=== PATIENT | female | born 1960 | race Caucasian/White ===

== ENCOUNTER 2016-11-20 12:31 | Emergency (ER) | payer MEDICARE, MEDICAID ==
[~2016-11-20] VITALS: Ht 157.5 cm; Wt 63.5 kg
--- NOTE | 2016-11-20 13:52 | [facility]gent Treatment Center Report ---
History of Present Issue Date/Time Seen by Provider 11/20/16 1343 Visit Reason Pt arrived:Walked Presenting Problem:LEFT WRIST PAIN AFTER FEELING A POP THE OTHER DAY WHEN SHE PICKED UP A KLEIN Location if Accident: Onset of symptoms date/time:11/17/16/ or onset unknown for:MEDICAL HX UNKNOWN Have you (or family members/close friends) recently traveled outside the [place]? N If Yes, where/when: Have you had exposure to infectious disease within the past month? TB? Other? Specify: States that she was doing dishes on Wed and picked up a cast iron skillet and she felt a pop in her left wrist States that she continued to do the dishes and noticed that as the day went on Wrist continued to hurt. State that the next day it was swollen and has continued to swell on and off and having pain denies falling ALLERGIES Coded Allergies: PEANUTS (FOOD) (Intermediate, ITCHING OF PALMS OF HANDS AND BOTTOM OF FEET 11/30) hydromorphone (Mild, ITCHING OF FACE/NOSE 12/10/15) morphine (Mild, SHAKING 12/10/15) penicillin G (Mild, 03/02/15) Canned Fish (FISH,CANNED) (Mild, NAUSEA/VOMITING 11/30/14) PT REPORTS "IF I EAT FISH TODAY I'LL SMELL LIKE FISH FOR 4 DAYS. MY BODY DOESN'T ABSORB THE FISH OIL, IT PUTS IT OUT THROUGH MY PORES". Home Medications Active Scripts Polyethylene Glycol 3350 (Miralax) 17 GM PO DAILY 30 Days Prov: 12/12/15 MECLIZINE HCL (ANTIVERT 25MG (generic)) 25 MG PO BID #60 TAB Prov: 10/15/16 Reported Medications INSUL REG 30%ISOPHAN 70% HUMAN (Humulin 70-30 Vial) 20 UNITS SC QHS INSUL REG 30%ISOPHAN 70% HUMAN (Humulin 70-30 Vial) 40-45 UNITS SC QAM LISINOPRIL/HYDROCHLOROTHIAZIDE (Lisinopril-Hctz 20-25 MG Tab) 0.25 TAB PO DAILY Furosemide (Furosemide) 20 MG PO DAILY Metolazone (Metolazone 2.5MG) 2.5 MG PO DAILY #30 TAB Loratadine (Loratadine 10MG Tablet) 10 MG PO QHS Lovastatin 20 MG PO QHS Ranitidine Hydrochloride (Ranitidine) 300 MG PO QHS Omeprazole (Omeprazole 40MG) 40 MG PO DAILY METFORMIN HCL (Metformin Hydrochloride) 1,000 MG PO BID #60 History Medical History General CAD? No Angina: Yes ID: No Hypertension? Yes Hyperlipidemia? Yes CHF? No DVT? No PE? No COPD? No Asthma? Yes Anemia? No GERD? No Gastric ulcers? No GI Bleed? No Hernia? No Thyroid Problems? No Hypothyroidism? No CVA? No Seizures? No Diabetes? Yes Insulin Dependent: Yes Insulin Pump: No Home FSBS? Yes Renal Insuffiency? No UTI? Yes Stones? No BPH? No GB Disease: Yes Nephritic Syndrome? No Asplenia? No Hepatitis? No Sickle Cell Disease? No Arthritis? No Migraines? No Cataracts? No Glaucoma? No MRSA? No HIV? No TB? No Anxiety? No Depression? No Cancer? No More? No Immunization HX DT/Tetanus Unknown Flu 2015- Flu Season Pneumonia Never Had Surgical Hx Previous Surgery?Y LT HAND HYSTERECTOMY 2002 CHOLECYSTECTOMY Family History Family HX Diabetes Yes CAD Yes Hypertension Yes Hyperlipidemia Yes Cancer No TB No Social History Smoking Hx Smoker: Never Smoker Tobacco: No Packs/day < 1 Pack Alcohol Alcohol: No Review of Systems All Other Systems Reviewed and Negative Comment Pain in left wrist after picking up klein while doing dishes Physical Exam Vital Signs Vital Signs Date Time Temp Pulse Resp B/P Pulse O2 O2 Flow FiO2 Ox Delivery Rate 11/20 1338 97.8 70 18 140/70 98 11/20 1240 97.8 70 18 140/70 98 General Appearance normal appearance, WD/WN, no apparent distress Respiratory Status Yes: trachea midline, chest symmetrical, non tender chest. No: respiratory distress. Cardiovascular normal exam, regular rate/rhythm Extremities swelling, Pain and mild swelling left wrist, no bruising no discoloration good pulses good cap refill Neurologic alert, normal exam, oriented x 3 Medical Decision Making LABS/Meds/Orders Pt receiving controlled substance in ED? No Results/Orders Current Medication Orders Sig/Kerrie Start time Last Medication Dose Route Stop Time Status Admin Ketorolac 60 MG ONCE ONE 11/20 1345 DC Tromethamine IM 11/20 1346 Orders Procedure Date/time Status UTC STABILIZE JOINT/AREA 11/20 1403 Active WRIST-3 VIEWS-LT 11/20 1344 Active XRAY/CT/US XRAY/CT/US XRAY wrist XR interpretation by reviewed by me Xray Results no fracture seen Progress [facility] Progress Notes Comment Patient advised that we would have radiologist read xray and if they saw anything different we would call her back Departure Departure Time of Disposition 1403 Disposition DC Home or Self Care(routine) Clinical Impression Primary Impression: Wrist sprain Qualifiers: Encounter type: initial encounter Laterality: left Qualified Code: S63.502A - Unspecified sprain of left wrist, initial encounter Condition STABLE Referrals Orlando Duran MD (Family): 2 Days-Call Office if pain persists for referral to orthopedics if warrented Patient Instructions How To Perform RICE (Rest, Ice, Compress, Elevate) Additional Instructions *RICE, Rest the extremity, Ice 15-20 minutes 3-4 times daily, Compress- wear the erik wrap as discussed as much as possible to help reduce swelling and pain, Elevate the extremity when at rest *Erik wrap is for support and help control swelling, use it except in the shower. Be sure that is not to tight but not to loose either *Elevate when resting *Ibuprofen 600-800mg every 6-8 hours as needed for pain an inflammation. If need something more can take Tylenol in between doses of Ibuprofen to help Immediately follow up for new or worsening of symptoms, or no noticeable improvement over the next 3-5 days Discharge Counseling Counseled pt/family regarding diagnosis, test results, medications/RX, home care, follow up needs Prescriptions Current Visit Scripts Ibuprofen (Ibuprofen 800MG) 800 MG PO QIDP PRN pain #30 TAB at [id number]
[2016-11-20 14:19] VITALS: BP 140/70
--- NOTE | 2016-11-20 14:50 | RADIOLOGY REPORT PS360 ---
WRIST-3 VIEWS-LT COMPARISON: Left hand 08/18/2009 HISTORY: S pain TECHNIQUE: AP lateral and oblique views FINDINGS: The distal radius and ulna appear intact. The carpal bones are normal and the soft tissues are normal. IMPRESSION: Negative left wrist
--- OUTSIDE RECORDS SUMMARY | 2016-11-27 04:48 | External Medical Summary Rpt | CCD ---
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 Bilirub 2 0.2 0.2-1.0 complet 013 mg/dL ed SerPl-m 02:47 Cnc AST 26-2 5 U/L 15-37 complet SerPl-c 013 ed Cnc 02:47 ALT --2 27 U/L 30-65 complet SerPl-c 013 ed Cnc 02:47 ALP 08-10-2 109 U/L 50-136 complet SerPl-c 013 ed Cnc 02:47 Amylase SerPl-cCnc (08-10-2012 02:47) Amylase 08-10-2 85 U/L 25-115 complet 013 ed SerPl-c 02:47 Cnc LIPASE (08-10-2012 02:47) LIPASE 08-10-2 244 U/L 73-393 complet 013 ed 02:47 CBC with AUTO DIFF (08-10-2012 02:47) WBC # 06-26-2 10.6 4.8-10. complet Bld 013 K/MM3 8 ed Auto 02:47 RBC # 06-26-2 4.92 4.2-5.4 complet Bld 013 M/mm3 ed Auto 02:47 Hgb -26-2 13.9 12.2-16 complet Bld-mCn 013 g/dL .2 ed c 02:47 Hct Fr 08-10-2 42.5 % 37.0-47 complet Bld 013 .0 ed 02:47 MCV RBC -26-2 86.5 fl 82.2-97 complet 013 .8 ed 02:47 MCH RBC -26-2 28.3 pg 27-31.2 complet Qn 013 ed Auto 02:47 MEAN 06-26-2 32.7 31.8-35 complet CORPUSC 013 g/dl .4 ed ULAR 02:47 HGB CONC RDW RBC 06-26-2 14.0 % 11.5-17 complet Auto 013 .5 ed 02:47 Platele 06-26-2 365 142-424 complet t Bld 013 K/mm3 ed Ql 02:47 Manual MEAN 06-26-2 7.3 fl 7.4-10. complet PLATELE 013 4 ed T 02:47 VOLUME Granulo 06-26-2 68.7 % 37.0-80 complet cytes 013 .0 ed Fr Bld 02:47 Auto LYMPH % 06-26-2 25.4 % 10-50.0 complet 013 ed 02:47 Monocyt 06-26-2 3.9 % 1.7-9.3 complet es Fr 013 ed Bld 02:47 Auto Eosinop 06-26-2 1.7 % 0.1-12. complet hil Fr 013 0 ed Bld 02:47 Auto Basophi 06-26-2 0.3 % 0.1-2.0 complet ls Fr 013 ed Bld 02:47 Auto Granulo 06-26-2 7.3 1.8-7.8 complet cytes # 013 K/mm3 ed Bld 02:47 Auto Lymphoc 06-26-2 2.7 0.7-4.5 complet ytes Fr 013 K/mm3 ed Bld 02:47 Auto Monocyt 06-26-2 0.4 0.1-1.0 complet es # 013 K/mm3 ed Bld 02:47 Auto Eosinop 06-26-2 0.2 0.0-0.4 complet hil # 013 K/mm3 ed Bld 02:47 Auto Basophi 06-26-2 0.0 0-0.2 complet ls # 013 K/MM3 ed Bld 02:47 Auto URINALYSIS/COMPLETE (08-10-2012 02:24) URINE 06-26-2 YELLOW YELLOW complet COLOR 013 ed 02:24 URINE 06-26-2 CLEAR CLEAR complet APPEARA 013 ed NCE 02:24 URINE 06-26-2 NEGATIV NEG complet GLUCOSE 013 E ed - 02:24 DIPSTIC K URINE 06-26-2 NEGATIV NEG complet BILIRUB 013 E ed IN - 02:24 DIPSTIC K URINE 06-26-2 NEGATIV NEG complet KETONE 013 E mg/dL ed 02:24 URINE 06-26-2 Greater 1.005-1 complet SPECIFI 013 than .030 ed C 02:24 or GRAVITY equal to 1.030 URINE 06-26-2 NEGATIV NEG complet BLOOD 013 E ed 02:24 URINE 06-26-2 5.5 UNK 5.0-8.5 complet PH 013 ed 02:24 URINE 06-26-2 NEGATIV NEG complet PROTEIN 013 E mg/dL ed - 02:24 DIPSTIC K URINE 06-26-2 0.2 NEG complet UROBILI 013 E.U./dL ed NOGEN - 02:24 DIPSTIC K URINE 06-26-2 NEGATIV NEG complet NITRATE 013 E ed - 02:24 DIPSTIC K URINE NEGATIV NEG complet LEUK 013 E ed ESTERAS 02:24 E URINE 08-10-2 OCC O complet WBC 013 wbc/hpf ed 02:24 URINE 08-10-2 10-20 0-5 complet SQUAMOU 013 #/hpf ed S CELLS 02:24 URINE 08-10-2 OCC O complet BACTERI 013 ed A 02:24 URINE 1+ OCC complet MUCUS 013 ed 02:24 Procedures Procedure DOS Code Location Performer Comment COMPREHEN 51615 COMBINED COMBINED SIVE 7 PHYSICIAN PHYSICIAN METABOLIC S LAB S LAB PANEL LIPID 53707 COMBINED COMBINED PANEL 7 PHYSIC[place] [address] COMBINED COMBINED THYROID 7 PHYSICIAN PHYSICIAN STIMULATI S LAB S LAB NG HORMONE TSH HEMOGLOBI 04770 COMBINED COMBINED N 7 PHYSICIAN PHYSICIAN GLYCOSYLA S LAB S LAB VICTORINA A1C BLOOD 66673 COMBINED COMBINED COUNT 7 PHYSICIAN PHYSICIAN COMPLETE S LAB S LAB AUTO&AUTO DIFRNTL WBC ALLERGEN 41123 [facility] SPECIFIC 7 MEAGAN MEAGAN IGE HOLDINGS HOLDINGS ROLAND/SEMI ROLAND EA ALLERGEN INTRAVITR 60569 [facility] SEN EAL NJX 7 RETINA PHARMACOL CONSULTAN OGIC AGT TS SPX COMPUTERI 62188 [facility] SEN ZED 7 RETINA OPHTHALMI CONSULTAN C IMAGING TS RETINA UNCLASSIF J3590 [facility] SEN IED 7 RETINA BIOLOGICS CONSULTAN TS RADEX 70406 [place] J[place] FOOT 7 MEDICAL COMPLETE IMAGING MINIMUM 3 [place] [address] L[facility] J[facility] GAMMAGLOB 7 [facility] ULIN IGE INC INC ALLERGEN 24688 [facility] SPECIFIC 7 [facility] IGE INC INC ROLAND/SEMI ROLAND EA ALLERGEN COLLECTIO 19666 L[facility] JU[facility] N VENOUS 7 [facility] BLOOD INC INC VENIPUNCT URE COLLECTIO 20430 [facility] N VENOUS 7 [facility] BLOOD INC INC VENIPUNCT URE CREATININ 21579 [facility] JU[facility] E BLOOD 7 [facility] INC INC LOCM Q9967 L[facility] JUAREZ [phone] 7 [facility] MG/ML INC [place] [address] [place] ABDOMEN & 7 MEDICAL PELVIS IMAGING W/CONTRAS ASS T MATERIAL CARCINOEM 20408 L[facility] JU[facility] BRYONIC 7 [facility] [address] LARRY JUAREZ UREA 7 [facility] NITROGEN INC INC QUANTITAT [place] BLD GLU A4253 [facility] TEST/REAG 7 STATES STATES T [facility] BLD SUPPLY SUPPLY GLU MON-50 NORMAL A4256 [facility] LOW AND 7 [facility] STATES HIGH MEDICAL MEDICAL CALIBRATO SUPPLY SUPPLY R SOLUTION/ CHIPS LANCETS A4259 UNITED UNITED PER BOX 7 STATES STATES OF [facility] MEDICAL MEDICAL SUPPLY SUPPLY NITRIC 61016 ALLERGY KNOTT OXIDE 7 PART[employer]ERS OF [employer] GAS CO DETERMINA TION SPMTRY 91757 ALLERGY KNOTT W/VC 7 PARTNERS EXPIRATOR OF DUARTE Y ROXANE CO W/WO MXML VOL VNTJ DSTRJ 03496 [facility] SEN LOCLZD 7 RETINA LESION CONSULTAN RETINA TS 1/ SESS PC LIPID 81395 [facility] J[facility]Z PANEL 7 [facility] INC INC COLLECTIO 15466 LARRY LARRY N VENOUS 7 [facility] BLOOD INC INC VENIPUNCT URE COMPREHEN 53560 L[facility] JU[facility]Z SIVE 7 [facility] METABOLIC INC INC PANEL SCREENING G0202 [place] JIMMY 7 MEDICAL MAMMOGRAP IMAGING HY KENY ASS INCL CAD WHEN PERFORMD HEMOGLOBI 17796 L[facility] JUAREZ N 7 [facility] GLYCOSYLA INC INC VICTORINA A1C COMPUTERI 53729 [facility] SEN ZED 7 RETINA OPHTHALMI CONSULTAN C IMAGING TS RETINA UNCLASSIF J3590 [facility] SEN IED 7 RETINA BIOLOGICS CONSULTAN TS INTRAVITR 17021 [facility] SEN EAL NJX 7 RETINA PHARMACOL CONSULTAN OGIC AGT TS SPX LANCETS A4259 [place] PER BOX 7 STATES STATES OF 100 MEDICAL MEDICAL SUPPLY SUPPLY NORMAL A4256 [facility] LOW AND 7 STATES STATES HIGH MEDICAL MEDICAL CALIBRATO SUPPLY SUPPLY R SOLUTION/ CHIPS BLD GLU A4253 [facility] TEST/REAG 7 [facility] STATES T [facility] BLD SUPPLY SUPPLY GLU MON-50 REPL EMANUEL A4233 [facility] ALKALINE 7 [facility] NOT J MEDICAL MEDICAL CELL EDIN SUPPLY SUPPLY BG MON OWND PT SPRING-PO A4258 [facility] WERED [address] [facility] STATES DEVICE MEDICAL MEDICAL FOR SUPPLY SUPPLY LANCET EACH INTRAVITR 24648 [facility] SEN EAL NJX 7 RETINA PHARMACOL CONSULTAN OGIC AGT TS SPX UNCLASSIF J3590 [facility] SEN IED 7 RETINA BIOLOGICS CONSULTAN TS COMPUTERI 85457 [facility] SEN ZED 7 RETINA OPHTHALMI CONSULTAN C IMAGING TS RETINA COLLECTIO 52975 LARRY JUAREZ N VENOUS 7 [facility] BLOOD INC INC VENIPUNCT URE BASIC 18680 LARRY JUAREZ METABOLIC 7 [facility] [place] [address] CHIPPS SETTEMBRE SURG 7 ZOYA & PATHOLOGY DUBILIER GROSS&NINO ROSCOPIC EXAM MEDICAL 56266 LARRY JUAREZ NUTRITION 7 [facility] INC INC ASSMT&IVN TJ INDIV EACH 15 NC INTRAVITR 02240 [facility] SEN EAL NJX 7 RETINA PHARMACOL CONSULTAN OGIC AGT TS SPX COMPUTERI 22851 [facility] SEN ZED 7 RETINA OPHTHALMI CONSULTAN C IMAGING TS RETINA UNCLASSIF J3590 [facility] SEN IED 7 RETINA BIOLOGICS CONSULTAN TS BLOOD 28800 L[facility]Y JUAREZ COUNT 7 [facility] COMPLETE INC INC AUTO&AUTO DIFRNTL WBC C-REACTIV 82204 LARRY JUAREZ E PROTEIN 7 [facility] INC INC COLLECTIO 32156 LARRY JUAREZ N VENOUS 7 [facility] BLOOD INC INC VENIPUNCT URE COMPREHEN 58727 L[facility]Y JUAREZ SIVE 7 [facility] [address] LARRY JUAREZ FERRITIN 7 [facility] INC INC SEDIMENTA 86085 LARRY JUAREZ TION RATE 7 [facility] RBC INC INC NON-AUTOM ATED BLD GLU A4253 UNITED UNITED TEST/REAG 7 STATES STATES [facility] BLD SUPPLY SUPPLY GLU MON-50 NORMAL A4256 [facility] AND 7 [facility] HIGH MEDICAL MEDICAL CALIBRATO SUPPLY SUPPLY R SOLUTION/ CHIPS LANCETS A4259 UNITED UNITED PER BOX [address] [facility] STATES OF [facility] MEDICAL MEDICAL SUPPLY SUPPLY INTRAVITR 80977 [facility] SEN CHAGO EAL NJX 6 RETINA PHARMACOL CONSULTAN OGIC AGT TS SPX COMPUTERI 03046 [facility] SEN CHAGO ZED 6 RETINA OPHTHALMI CONSULTAN C IMAGING TS RETINA UNCLASSIF J3590 [facility] SEN CHAGO IED 6 RETINA BIOLOGICS CONSULTAN TS SBSQ 71088 [facility] 6 PHYSICIAN WILY CARE/DAY S [place] [address] [place] [address] [place] ALL ABDOMEN & 6 MEDICAL PELVIS IMAGING W/O ASS CONTRAST MATERIAL INITIAL 89593 [facility] 6 PHYSICIAN WILY CARE/DAY S GROUP 30 MINUTES LANCETS A4259 [place] PER BOX 6 STATES STATES OF [facility] MEDICAL MEDICAL SUPPLY SUPPLY NORMAL A4256 [facility] AND 6 [facility] HIGH MEDICAL MEDICAL CALIBRATO SUPPLY SUPPLY R SOLUTION/ [place]IPS BLD GLU A4253 [place] TEST/REAG 6 [facility] T [facility] BLD SUPPLY SUPPLY GLU WED-50 FOR DIAB A5512 [place] ONLY MX 6 MEDICAL MEDICAL DNSITY SUPPLY SUPPLY INSRT DIR [employer] FORMD PRFAB EA DIAB ONLY A5500 [place] FIT CSTM 6 MEDICAL MEDICAL PREP&SPL SUPPLY SUPPLY [employer] DNSITY INSRT DSTRJ 79345 [facility] SEN CHAGO LOCLZD 6 RETINA LESION CONSULTAN RETINA TS 1/> SESS PC LIPID 46102 COMBINED COMBINED PANEL 6 PHYSICIAN PHYSICIAN S LA S LA COMPREHEN 86380 COMBINED COMBINED SIVE 6 PHYSICIAN PHYSICIAN METABOLIC S LA S LA PANEL HEMOGLOBI 82173 COMBINED COMBINED N 6 PHYSICIAN PHYSICIAN GLYCOSYLA S LA S LA VICTORINA A1C COMPUTERI 86871 [facility] SEN CHAGO ZED 6 RETINA OPHTHALMI CONSULTAN C IMAGING TS RETINA UNCLASSIF J3590 [facility] SEN CHAGO IED 6 RETINA BIOLOGICS CONSULTAN TS INTRAVITR 66620 [facility] SEN CHAGO EAL NJX 6 RETINA PHARMACOL CONSULTAN OGIC AGT TS SPX COMPREHEN 58363 COMBINED COMBINED SIVE 6 PHYSICIAN PHYSICIAN METABOLIC S LA S LA PANEL LIPID 02866 COMBINED COMBINED PANEL 6 PHYSICIAN PHYSICIAN S LA S LA HEMOGLOBI 84890 COMBINED COMBINED N 6 PHYSICIAN PHYSICIAN GLYCOSYLA S LA S LA VICTORINA A1C COMPUTERI 23076 [facility] SEN ZED 6 RETINA OPHTHALMI CONSULTAN C IMAGING TS RETINA UNCLASSIF J3590 [facility] SEN IED 6 RETINA BIOLOGICS CONSULTAN TS INTRAVITR 96971 [facility] SEN EAL NJX 6 RETINA PHARMACOL CONSULTAN OGIC AGT TS SPX INTRAVITR 03505 [facility] SEN CHAGO EAL NJX 6 RETINA PHARMACOL CONSULTAN OGIC AGT TS SPX UNCLASSIF J3590 [facility] SEN CHAGO IED 6 RETINA BIOLOGICS CONSULTAN TS COMPUTERI 73413 [facility] SEN CHAGO ZED 6 RETINA OPHTHALMI CONSULTAN C IMAGING TS RETINA LANCETS A4259 [place] PER BOX 6 STATES STATES OF 100 MEDICAL MEDICAL SUPPLY SUPPLY BLD GLU A4253 [facility] [place] TEST/REAG 6 STATES STATES T [facility] BLD SUPPLY SUPPLY GLU MON-50 NORMAL A4256 [place] LOW AND 6 STATES STATES HIGH MEDICAL MEDICAL CALIBRATO SUPPLY SUPPLY R SOLUTION/ CHIPS REPL EMANUEL A4233 [facility] ALKALINE 6 STATES STATES NOT J MEDICAL MEDICAL CELL EDIN SUPPLY SUPPLY BG MON OWND PT SPRING-PO A4258 [facility] WERED 6 STATES STATES DEVICE MEDICAL MEDICAL FOR SUPPLY SUPPLY LANCET EACH INTRAVITR 82948 [facility] SEN CHAGO EAL NJX 6 RETINA PHARMACOL CONSULTAN OGIC AGT TS SPX UNCLASSIF J3590 [facility] SEN CHAGO IED 6 RETINA BIOLOGICS CONSULTAN TS UNCLASSIF J3590 [facility] SEN CHAGO IED 6 RETINA BIOLOGICS CONSULTAN TS COMPUTERI 33933 [facility] SEN CHAGO ZED 6 RETINA OPHTHALMI CONSULTAN C IMAGING TS RETINA INTRAVITR 27009 RENATO SEN CHAGO EAL NJX 6 RETINA PHARMACOL CONSULTAN OGIC AGT TS SPX TREATMENT 08903 VANDANA VARGAS 6 [facility] RETINOPAT HY PHOTOCOAG ULATION LANCETS A4259 [place] PER BOX 6 [place] [address] MEDICAL MEDICAL SUPPLY SUPPLY NORMAL A4256 [facility] LOW AND 6 [facility] HIGH MEDICAL MEDICAL CALIBRATO SUPPLY SUPPLY R SOLUTION/ CHIPS BLD GLU A4253 [facility] TEST/REAG 6 [facility] T [facility] BLD SUPPLY SUPPLY GLU MON-50 TREATMENT 85892 VANDANA VARGAS 6 [facility] RETINOPAT HY PHOTOCOAG ULATION LIPID 62710 COMBINED COMBINED PANEL 6 PHYSICIAN PHYSICIAN S LA S LA COMPREHEN 64553 COMBINED COMBINED SIVE 6 PHYSICIAN PHYSICIAN METABOLIC S LA S LA PANEL HEMOGLOBI 53826 COMBINED COMBINED N 6 PHYSICIAN PHYSICIAN GLYCOSYLA S LA S LA VICTORINA A1C TREATMENT 61922 VANDANA VARGAS 6 [facility] RETINOPAT HY PHOTOCOAG ULATION LACTOFERR 51459 [facility] JU[facility] IN FECAL 6 [facility] QUALITATI INC INC VE COMPREHEN 23356 [facility] JU[facility]Z SIVE 6 [facility] METABOLIC INC INC PANEL COLLECTIO 68409 LARRY JUAREZ N VENOUS 6 [facility] BLOOD INC INC VENIPUNCT URE C-REACTIV 57886 LARRY JUAREZ E PROTEIN 6 [facility] INC INC BLOOD 95602 LARRY JUAREZ COUNT 6 [facility] COMPLETE INC INC AUTO&AUTO DIFRNTL WBC HOME E0607 HOME HOME BLOOD 6 [facility]ALTH HEALTH GLUCOSE ADVISORS ADVISORS MONITOR NORMAL A4256 HOME HOME LOW AND 6 HEALTH HEALTH HIGH ADVISORS ADVISORS CALIBRATO R SOLUTION/ CHIPS BLD GLU A4253 HOME HOME TEST/REAG 6 HEALTH HEALTH T [facility]IPS ADVISORS ADVISORS HOME BLD GLU MON-50 LANCETS A4259 HOME HOME PER BOX 6 [facility] ADVISORS ADVISORS [facility] A4258 HOME HOME WERED 6 HEALTH HEALTH DEVICE ADVISORS ADVISORS FOR LANCET EACH FIBRIN 55018 L[facility] JU[facility]Z DGRADJ 6 [facility] PRODUCTS INC INC D-DIMER QUAL/SEMI ROLAND ECG 52966 LARRY JU[facility]Z ROUTINE 6 [facility] ECG INC INC W/LEAST 12 LDS TRCG ONLY W/O I&R BASIC 78515 LARRY JUAREZ METABOLIC 6 [facility] PANEL INC INC CALCIUM TOTAL URNLS DIP 80970 L[facility]Y JUAREZ 6 [facility] STICK/TAB INC INC LET REAGENT AUTO MICROSCOP Y RADIOLOGI 97023 [place] JIMMY C EXAM 6 MEDICAL ALEJANDRO CHEST 2 IMAGING VIEWS ASS FRONTAL&L ATERAL GLUC BLD 59937 LARRY JUAREZ GLUC MNTR 6 [facility] DEV INC INC CLEARED FDA SPEC HOME USE BLOOD 03594 L[facility]Y JUAREZ COUNT 6 [facility] COMPLETE INC INC AUTO&[place] [address] LARRY JUAREZ TROPONIN 6 [facility] [place] [address] LARRY JUAREZ HEAD/BRAI 6 [facility] N W/O INC INC CONTRAST MATERIAL ECG 74825 LARRY HELMS ROUTINE 6 [facility] W/LEAST P 12 LDS I&R ONLY BLD GLU A4253 [facility] TEST/REAG 5 PHARMACY PHARMACY T [facility] #591 #591 HOME BLD GLU MON-50 DSTRJ 53128 [place] SAM LOCLZD 5 [facility]/> SESS PC BLD GLU A4253 [facility] TEST/REAG 5 PHARMACY PHARMACY T [facility] #591 #591 HOME BLD GLU MON-50 ADMINISTR G0008 [place] ANALIA ATION OF [address] [place] [address] INFLUENZA INTERNAL VIRUS MED VACCINE LIPID 87434 COMBINED COMBINED PANEL 5 PHYSICIAN PHYSICIAN S LA S LA COMPREHEN 83926 COMBINED COMBINED SIVE 5 PHYSICIAN PHYSICIAN METABOLIC S LA S LA PANEL INFLUENZA Q2038 [facility] [facility] 5 [facility] DAHLIA SPLIT INTERNAL VIRUS 3 MED YRS & > IM FLUZONE HEMOGLOBI 42791 COMBINED COMBINED N 5 PHYSICIAN PHYSICIAN GLYCOSYLA S LA S LA VICTORINA A1C THERAPEUT 80894 [facility] JU[facility] IC 5 [facility] PROPHYLAC INC INC TIC/DX INJECTION SUBQ/IM IAADI 78641 L[facility]Y JUAREZ INFLUENZA 5 [facility] B VIRUS INC INC IAADI 83635 L[facility] JU[facility]Z INFFLUENZ 5 [facility] A A VIRUS INC INC RADIOLOGI 89211 LARRY JUAREZ C EXAM 5 [facility] CHEST 2 INC INC VIEWS FRONTAL&L ATERAL BLD GLU A4253 [facility] TEST/REAG 5 PHARMACY PHARMACY T [facility] #591 #591 HOME BLD GLU MON-50 COLLECTIO 85061 L[facility]Y JUAREZ N VENOUS 5 [facility] BLOOD INC INC VENIPUNCT URE CREATININ 40281 LARRY JUAREZ E BLOOD 5 [place] [address] LARRY JUAREZ UREA 5 [facility] [place] [address] [facility] ABDOMEN & 5 MEDICAL [place] PELVIS IMAGING W/[place] [address] CHIPPS CHIPPS SURG 5 ZOYA & ZOYA & PATHOLOGY SOBIA RAMSAY GROSS&NINO ROSCOPIC EXAM GLUC BLD 47135 LARRY JUAREZ GLUC MNTR 5 [facility] DEV INC INC CLEARED FDA SPEC HOME USE SPECIAL 24021 CHIPPS PICKLESIM STAIN 5 ZOYA & ER JR FRANNIE GROUP 1 DUBILIER MICROORGA NISMS I&R SPCL STN 29489 CHIPPS PICKLESIM 2 I&R 5 ZOYA & ER JR FRANNIE EXCPT SOBIA MICROORG/ ENZYME/IM CYT ANES 58612 [facility] UPPER GI 5 ANESTH XUAN ENDOSCOPY [place] [address] LARRY JUAREZ INFUSION 5 [facility] THERAPY INC [place] [address] LARRY JUAREZ INFUSION 5 [facility] THERAPY/P INC INC ROPHYLAXI S /DX 1ST TO 1 HR E-STIM G0283 PROFESSIO CROSSFIEL 1/> AREAS 5 NAL REHAB D [facility] [facility] WND CARE PSC PART TX PLAN THERAPEUT 89572 PROFESSIO CROSSFIEL IC PX 1/> 5 [facility] [facility] EACH 15 PSC MIN EXERCISES THERAPEUT 96100 PROFESSIO CROSSFIEL IC PX 1/> 5 NAL RE[facility] [place] [facility] EACH 15 PSC MIN EXERCISES E-STIM G0283 PROFESSIO CROSSFIEL 1/> AREAS 5 NAL REHAB [facility] [facility] WND CARE PSC PART TX PLAN E-STIM G0283 PROFESSIO CROSSFIEL 1/> AREAS 5 NAL REHAB [facility] [facility] WND CARE PSC PART TX PLAN THERAPEUT 91566 PROFESSIO CROSSFIEL IC PX 1/> 5 NAL REH[facility] [facility] EACH 15 PSC MIN EXERCISES THERAPEUT 74519 PROFESSIO CROSSFIEL IC PX 1/> 5 NAL REH[facility] [place] [facility] EACH 15 PSC MIN EXERCISES E-STIM G0283 PROFESSIO CROSSFIEL 1/> AREAS 5 NAL REHAB [facility] [place] [facility] WND CARE PSC PART TX PLAN THERAPEUT 53948 PROFESSIO CROSSFIEL IC PX 1/> 5 NAL REHAB [facility] [place] [facility] EACH 15 PSC MIN EXERCISES THERAPEUT 04044 PROFESSIO CROSSFIEL IC PX 1/> 5 NAL REHAB [facility] [place] [facility] EACH 15 PSC MIN EXERCISES THERAPEUT 30104 PROFESSIO CROSSFIEL IC PX 1/> 5 NAL REHAB [facility] [place] [facility] EACH 15 PSC MIN EXERCISES IADNA-DNA 97951 LARRY JUAREZ /RNA GI 5 [facility] PTHGN INC INC MULTIPLEX PROBE TQ 12- THERAPEUT 28967 PROFESSIO CROSSFIEL IC PX 1/> 5 [facility] EACH 15 PSC MIN EXERCISES FOR DIAB A5512 [facility] ONLY MX 5 [facility]ICAL DNSITY SUPPLY SUPPLY [facility] FORMD PRFAB EA DIAB ONLY A5500 [facility] FIT CSTM 5 MEDICAL MEDICAL PREP&SPL SUPPLY SUPPLY [facility] DNSITY INSRT THERAPEUT 92765 PROFESSIO CROSSFIEL IC PX 1/> 5 [facility] EACH 15 PSC MIN EXERCISES BLD GLU A4253 [facility] TEST/REAG 5 PHARMACY PHARMACY T STRIPS #591 #591 HOME BLD GLU MON-50 THERAPEUT 71741 PROFESSIO CROSSFIEL IC PX 1/> 5 [facility] EACH 15 PSC MIN EXERCISES E-STIM G0283 PROFESSIO CROSSFIEL 1/> AREAS 5 [facility] WND CARE PSC PART TX PLAN E-STIM G0283 PROFESSIO CROSSFIEL 1/> AREAS 5 [facility] WND CARE PSC PART TX PLAN THERAPEUT 90551 PROFESSIO CROSSFIEL IC PX 1/> 5 [facility] EACH 15 PSC MIN EXERCISES THERAPEUT 04421 PROFESSIO CROSSFIEL IC PX 1/> 5 [facility] EACH 15 PSC MIN EXERCISES E-STIM G0283 PROFESSIO CROSSFIEL 1/> AREAS 5 [facility] WND CARE PSC PART TX PLAN E-STIM G0283 PROFESSIO CROSSFIEL 1/> AREAS 5 [facility] WND CARE PSC PART TX PLAN THERAPEUT 35998 PROFESSIO CROSSFIEL IC PX 1/> 5 [facility] EACH 15 PSC MIN EXERCISES THERAPEUT 54190 PROFESSIO CROSSFIEL IC PX 1/> 5 [facility] EACH 15 PSC MIN EXERCISES PHYSICAL 51046 PROFESSIO CROSSFIEL THERAPY 5 [facility] EVALUAT[facility] N PSC BLD GLU A4253 [facility] TEST/REAG 5 PHARMACY PHARMACY T STRIPS #591 #591 HOME BLD GLU MON-50 ANTIBODY 21606 [facility] HELMINTH 5 [facility] [place] [address] L[facility] JUARE[facility] FREE 5 [facility] [place] [address] L[facility] THYROID 5 [facility] STIMULATI INC INC NG HORMONE TSH COLLECTIO 65696 [facility] N VENOUS 5 [facility] BLOOD INC INC VENIPUNCT URE BLD GLU A4253 [facility] TEST/REAG 5 PHARMACY PHARMACY T STRIPS #591 #591 HOME BLD GLU MON-50 MEDICAL 29146 [facility] NUTRITION 5 [facility] INC INC ASSMT&IVN TJ INDIV EACH 15 NC COMPUTER- 47950 [place] AIDED 4 MEDICAL [place] DETECTION IMAGING ASS SCREENING MAMMOGRAP HY SCREENING G0202 [place] [address] MEDICAL [place] MAMMOGRAP IMAGING HY KENY ASS INCL CAD WHEN PERFORMD ALBUMIN 51155 [place] BESSON URINE 4 [place] DAHLIA MICROALBU INTERNAL MIN MED SEMIQUANT ITATIVE HEMOGLOBI 36377 COMBINED COMBINED N 4 PHYSICIAN PHYSICIAN GLYCOSYLA S LA S LA VICTORINA A1C COMPREHEN 15662 COMBINED COMBINED SIVE 4 PHYSICIAN PHYSICIAN METABOLIC S LA S LA PANEL LIPID 28827 COMBINED COMBINED PANEL 4 PHYSICIAN PHYSICIAN S LA S LA RADEX HIP 59570 JABARI Hooper 4 UNILATERA L COMPLETE MINIMUM 2 VIEWS CRTCHS E0114 BREG INC. BREG INC. UNDARM 4 OTH THAN WOOD PAIR PAD TIP&HNDGR IP RADIOLOGI 45007 JABARI Hooper C 4 EXAMINATI ON PELVIS 1/2 VIEWS GLUC BLD 29278 LARRY JU[facility]Z GLUC MNTR 4 [facility] DEV INC INC [place] [address] JEROME JEROME SURG 4 GALA GALA PATHOLOGY GROSS&NINO ROSCOPIC EXAM EGD 65381 LARR[facility] JU[facility]Z TRANSORAL 4 [facility] BIOPSY INC INC SINGLE/MU LTIPLE ANES 64799 [facility] LOWER 4 ANESTH XUAN INTESTINE OF THE BLUE ENDOSCOPY DISTAL DUODENUM [place] 73947 CHAVEZ ADOLFO CHAVEZ ADOLFO PY 4 W/BIOPSY SINGLE/MU LTIPLE SPCL STN 48235 JEROME JEROME 2 I&R 4 GALA GALA EXCPT MICROORG/ ENZYME/IM CYT SPECIAL 14875 JEROME JEROME STAIN 4 GALA GALA GROUP 1 MICROORGA NISMS I&[place] [address] LARRY JU[facility]Z GIARDIA 4 [facility] INC INC OVA&VEDA 65077 LARR[facility] JU[facility]Z ITES 4 [facility] DIRECT INC INC SMEARS CONCENTRA TION & ID C-REACTIV 41994 LARRY JU[facility]Z E PROTEIN 4 [facility] INC INC COMPREHEN 56451 LARRY JU[facility]Z SIVE 4 [facility] METABOLIC INC INC PANEL BLOOD 30772 LARRY JUAREZ COUNT 4 [facility] COMPLETE INC INC AUTO&AUTO DIFRNTL WBC BLOOD 61802 COMBINED COMBINED COUNT 4 PHYSICIAN PHYSICIAN COMPLETE S LA S LA AUTO&AUTO DIFRNTL WBC DETERMINA 17322 HÉCTOR ANAYA TION 4 GRE GRE REFRACTIV E STATE HEMOGLOBI 07647 COMBINED COMBINED N 4 PHYSICIAN PHYSICIAN GLYCOSYLA S LA S LA VICTORINA A1C COMPREHEN [id number] COMBINED COMBINED SIVE 4 PHYSICIAN PHYSICIAN METABOLIC S LA S LA PANEL OPHTH 05120 HÉCTOR ANAYA MEDICAL 4 GRE GRE XM&EVAL COMPRE NEW PT 1/> VST ALBUMIN 93230 BESSON BESSON URINE 4 DAHLIA DAHLIA MICROALBU MIN SEMIQUANT ITATIVE RADEX 61546 JIMMY JIMMY SPINE 4 ALEJANDRO ALEJANDRO THORACIC 3 VIEWS RADEX 88497 JIMMY JIMMY SHOULDER 4 ALEJANDRO ALEJANDRO COMPLETE MINIMUM 2 VIEWS RADIOLOGI 82946 JIMMY JIMMY C EXAM 4 ALEJANDRO ALEJANDRO CHEST 2 VIEWS FRONTAL&L ATERAL RADEX 85902 JIMMY JIMMY SPINE 4 ALEJANDRO ALEJANDRO CERVICAL [address] [place] [address] [place] [address] L[facility] JUAREZ ABDOMEN & 4 [facility] PELVIS INC INC W/CONTRAS T MATERIAL LOCM Q9967 L[facility]Y JUAREZ [phone] [facility] MG/ML INC INC IODINE CONCENTRA TION PER ML URNLS DIP 55463 L[place] JUAREZ 4 [facility] STICK/TAB INC INC [place] [address] LARRY JUAREZ LIPASE 4 [facility] [place] [address] JIMMY JIMMY ABDOMEN & 4 ALEJANDRO ALEJANDRO PELVIS W/O CONTRAST MATERIAL COMPREHEN 05331 ALRRY JUAREZ SIVE 4 [facility] METABOLIC INC INC PANEL 3D 52192 LARRY JUAREZ RENDERING 4 [facility] INC INC W/INTERP& POSTPROC DIFF WORK STATION BLOOD 50914 L[place]Y LEWISON COUNT 4 [facility] COMPLETE INC INC AUTO&[place] [address] [place] JUAREZ INFUSION 4 [facility] THERAPY/P INC INC ROPHYLAXI S /DX 1ST TO 1 HR Encounters Encounter Start End Date Code Location Performer Type Date OFFICE 11885 [facility] SEN OUTPATIEN 7 7 RETINA T VISIT CONSULTAN 15 TS MINUTES OFFICE 57114 ALLERGY KNOTT OUTPATIEN 7 7 PARTNERS T VISIT OF DU[place] 25 [facility] L[facility] - 7 7 [facility]PATIEN INC HOSP[facility] - 7 7 [facility] OUTPATIEN INC T OFFICE 30640 ALLERGY KNOTT OUTPATIEN 7 7 PARTNERS T NEW 45 OF DUARTE MINUTES CO [facility] - 7 7 [facility] OUTPATIEN INC H[facility] - 7 7 [facility] OUTPATIEN INC T OFFICE 12567 [facility] 7 7 [facility] T VISIT INTERNAL 15 MED MINUTES [facility] - 7 7 [facility] OUTPATIEN INC T OFFICE 13854 [facility] OUTPATI[facility] 7 7 [facility] T VISIT INTERNAL 25 MED MINUTES [facility] - 7 7 [facility] OUTPATIEN INC T OFFICE 97807 [facility] OUTPATIEN 6 6 [facility] T VISIT S GROUP 10 MINUTES HOSPITAL [facility] - 6 6 [facility] INPATIENT INC EMERGENCY 02721 THOMAS ROSA DEPT 6 6 PHYSICIAN VISIT S, PLLC HIGH SEVERITY& THREAT FUNCJ OFFICE 38877 [facility] OUTPATIEN 6 6 [facility] T NEW 45 CONSULTAN MINUTES TS OFFICE 73094 [place] [facility] OUTPATIEN 6 6 [place] DA[place]IA T VISIT INTERNAL 15 MED MINUTES HOSPITAL [facility] - OTHER 6 6 [facility] - 6 6 [facility] OUTPATIEN [facility]PLACED BY [facility] - 6 6 [facility] OUTPATIEN INC T EMERGENCY 41491 [facility] 6 6 [facility] DEPARTMEN INC T VISIT HIGH/URGE NT SEVERITY OFFICE 95956 [facility] [facility] OUTPATIEN 5 5 [place] DAHLIA T VISIT INTERNAL 25 MED MINUTES [facility]OSPITAL [facility] - 5 5 [facility] OUTPATIEN INC T EMERGENCY 07086 THOMAS DAMON DEPT 5 5 PHYSICIAN NINO VISIT S, PLLC HIGH SEVERITY& THREAT FUNCJ EMERGENCY 65766 [facility] 5 5 [facility] DEPARTMEN INC T VISIT MODERATE SEVERITY OFFICE 94626 [facility] [facility] OUT[facility] 5 5 [facility] T VISIT INTERNAL 25 MED MINUTES [facility] - 5 5 [facility] OUTPATIEN INC [facility] - 5 5 [facility] OUTPATIEN INC T OFFICE 83810 HÉCTOR ANAYA OUTPATIEN 5 5 [facility] T VISIT 25 MINUTES HOSPITAL [facility] - OTHER 5 5 [facility] INC OFFICE 54846 L[place] GUIDRY OUTPATIEN [address] [facility] - 5 5 [facility] OUTPATIEN [facility]ED [facility] - 5 5 [facility] OUTPATIEN INC EMERGENCY 74964 [facility] DAMON 4 4 [facility] T VISIT P LOW/MODER SEVERITY OFFICE 37742 [facility] NELSON MALAGONEN 4 4 PHYSICIAN [facility] T VISIT S GROUP 15 MINUTES HOSPITAL [facility] - 4 4 [facility] OUTPATIEN [facility] T OFFICE 56599 [facility] [facility] OUTPATIEN 4 4 [facility] T VISIT INTERNAL 25 MED MINUTES OFFICE 89805 [facility] [facility] OUTPATIEN 4 4 [facility] T VISIT INTERNAL 15 MED MINUTES EMERGENCY 57793 NELSON DAMON 4 4 [facility] T VISIT HIGH/URGE NT SEVERITY OFFICE 90662 [facility] OUTPATIEN 4 4 [facility] T VISIT INTERNAL 15 MED MINUTES OFFICE 70754 CHAVEZ ADOLFO CHAVEZ ADOLFO OUTPATIEN 4 4 T VISIT 25 MINUTES HOSPITAL [facility] - 4 4 [facility] - 4 4 [facility] OUTPATIEN INC T OFFICE 20229 CHAVEZ ADOLFO CHAVEZ ADOLFO OUTPATIEN 4 4 T [facility] LARR[facility] - 4 4 [facility] OUTPATIEN INC T OFFICE 41493 [facility] OUTPATIEN 4 4 DAHLIA DAHLIA T VISIT 15 MINUTES OFFICE 20833 [facility] OUTPATIEN 4 4 DAHLIA DAHLIA T VISIT 25 MINUTES [facility]OSPITAL [facility] - 4 4 [facility] OUTPATIEN INC T EMERGENCY 59505 NELSON DAMON DEPT 4 4 NINO NINO VISIT HIGH SEVERITY& THREAT FUN EMERGENCY 84461 [facility] 4 4 [facility] DEPARTMEN INC T VISIT LOW/MODER SEVERITY Emergency JESSICA Cross MD (ER) 4 11:33 4 16:29 [facility] EMERGENCY 55559 DEV ANGEL DEPT 4 4 VISIT HIGH SEVERITY& THREAT [facility] L[facility] - 4 4 [facility] OUTPATIEN INC T EMERGENCY 82243 [facility] 4 4 [facility] DEPARTMEN INC T VISIT HIGH/URGE NT SEVERITY Emergency JESSICA Partida (ER) 3 14:10 3 14:41 [facility] Red E. Emergency JESSICA ZACARIAS (ER) 3 12:02 3 14:42 [facility] MOHAMED Emergency JESSICA Cross MD (ER) 3 17:51 3 19:25 [facility] Inpatient JAKOB Anderson (IN) 3 02:15 3 11:35 [facility]
--- OUTSIDE RECORDS SUMMARY | 2016-11-27 04:48 | External Medical Summary Rpt | CCD ---
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 [place] AREAS ASSOC EACH 15 PSC MIN EXERCISES FOR DIAB A5512 [place] ONLY MX 5 MEDICAL MEDICAL DNSITY SUPPLY SUPPLY [employer] FORMD PRFAB EA DIAB ONLY A5500 [place] FIT CSTM 5 MEDICAL MEDICAL PREP&SPL SUPPLY SUPPLY SHOE [employer] LLC DNSITY INSRT THERAPEUT 62988 PROFESSIO CROSSFIEL IC PX 1/> 5 [facility] RE[facility] [place] ARE[facility] ASSOC EACH 15 PSC MIN EXERCISES BLD GLU A4253 [facility] TEST/REAG 5 PHARMACY PHARMACY T STRIPS #591 #591 HOME BLD GLU MON-50 THERAPEUT 42381 PROFESSIO CROSSFIEL IC PX 1/> 5 [facility] [place] [facility] ASSOC EACH 15 PSC MIN EXERCISES E-STIM G0283 PROFESSIO CROSSFIEL 1/> AREAS 5 NAL RE[facility] [place] O[facility] THAN ASSOC WND CARE PSC PART TX PLAN E-STIM G0283 PROFESSIO CROSSFIEL 1/> AREAS 5 NAL RE[facility] [place] OTH THAN ASSOC WND CARE PSC PART TX PLAN THERAPEUT 69003 PROFESSIO CROSSFIEL IC PX 1/> 5 NAL RE[facility] [place] AREAS ASSOC EACH 15 PSC MIN EXERCISES THERAPEUT 89469 PROFESSIO CROSSFIEL IC PX 1/> 5 NAL REHAB [facility] [place] AREAS ASSOC EACH 15 PSC MIN EXERCISES E-STIM G0283 PROFESSIO CROSSFIEL 1/> AREAS 5 NAL REHAB [facility] [place] OTH THAN ASSOC WND CARE PSC PART TX PLAN E-STIM G0283 PROFESSIO CROSSFIEL 1/> AREAS 5 NAL REHAB [facility] [place] OTH THAN ASSOC WND CARE PSC PART TX PLAN THERAPEUT 49073 PROFESSIO CROSSFIEL IC PX 1/> 5 NAL RE[facility] [place] AREAS ASSOC EACH 15 PSC MIN EXERCISES THERAPEUT 82776 PROFESSIO CROSSFIEL IC PX 1/> 5 N[facility] RE[facility] [place] AREAS ASSOC EACH 15 PSC MIN EXERCISES PHYSICAL 67540 PROFESSIO CROSSFIEL THERAPY 5 NAL REHAB [facility] [place] EVALUATIO ASSOC N PSC BLD GLU A4253 [facility] TEST/REAG 5 PHARMACY PHARMACY T STRIPS #591 #591 HOME BLD GLU MON-50 ANTIBODY 13569 LARRY JUAREZ HELMINTH 5 [facility] [place] [address] LARRY JUAREZ FREE 5 [facility] [place] [address] LARRY JUAREZ THYROID 5 [facility] STIMULATI INC INC NG HORMONE TSH COLLECTIO 83795 LARRY JUAREZ N VENOUS 5 [facility] BLOOD INC INC VENIPUNCT URE BLD GLU A4253 [facility] TEST/REAG 5 PHARMACY PHARMACY T STRIPS #591 #591 HOME BLD GLU MON-50 MEDICAL 31486 LARRY JUAREZ NUTRITION 5 [facility] INC INC ASSMT&IVN TJ INDIV EACH 15 SD COMPUTER- 09843 [place] D[place] AIDED 4 MEDICAL [place] DETECTION IMAGING ASS SCREENING MAMMOGRAP HY SCREENING G0202 [place] [address] MEDICAL [place] MAMMOGRAP IMAGING HY KENY ASS INCL CAD WHEN PERFORMD ALBUMIN 73155 [facility] URINE 4 HARTMAN DAHLIA MICROALBU INTERNAL MIN MED SEMIQUANT ITATIVE HEMOGLOBI 68435 COMBINED COMBINED N 4 PHYSICIAN PHYSICIAN GLYCOSYLA S LA S LA VICTORINA A1C COMPREHEN 86837 COMBINED COMBINED SIVE 4 PHYSICIAN PHYSICIAN METABOLIC S LA S LA PANEL LIPID 98345 COMBINED COMBINED PANEL 4 PHYSICIAN PHYSICIAN S LA S LA RADEX HIP 09916 JABARI Hooper 4 UNILATERA L COMPLETE MINIMUM 2 VIEWS CRTCHS E0114 BREG INC. BREG INC. UNDARM 4 OTH THAN WOOD PAIR PAD TIP&HNDGR IP RADIOLOGI 04760 JABARI Hooper C 4 EXAMINATI ON PELVIS 1/2 VIEWS GLUC BLD 23520 LARRY JUAREZ GLUC MNTR 4 [facility] DEV INC INC [place] [address] JEROME JEROME SURG 4 GALA GALA PATHOLOGY GROSS&NINO ROSCOPIC EXAM EGD 90335 LARRY JUAREZ TRANSORAL 4 [facility] BIOPSY INC INC SINGLE/MU LTIPLE ANES 86729 [facility] LOWER 4 ANESTH XUAN INTESTINE OF THE BLUE ENDOSCOPY DISTAL DUODENUM COLONOSCO 21143 CHAVEZ ADOLFO CHAVEZ ADOLFO PY 4 W/BIOPSY SINGLE/MU LTIPLE SPCL STN 48789 JEROME JEROME 2 I&R 4 GALA GALA EXCPT MICROORG/ ENZYME/IM CYT SPECIAL 94341 JEROME JEROME STAIN 4 GALA GALA GROUP 1 MICROORGA NISMS I&[place] [address] LARRY JUAREZ GIARDIA 4 [facility] INC INC OVA&VEDA 91911 LARRY JUAREZ ITES 4 [facility] DIRECT INC INC SMEARS CONCENTRA TION & ID C-REACTIV 07783 LARRY JUAREZ E PROTEIN 4 [facility] INC INC COMPREHEN 57400 LARRY JUAREZ SIVE 4 [facility] METABOLIC INC INC PANEL BLOOD 07697 LARRY JUAREZ COUNT 4 [facility] COMPLETE INC INC AUTO&AUTO DIFRNTL WBC BLOOD 28507 COMBINED COMBINED COUNT 4 PHYSICIAN PHYSICIAN COMPLETE S LA S LA AUTO&AUTO DIFRNTL WBC DETERMINA 35142 HÉCTOR ANAYA TION 4 GRE GRE REFRACTIV E STATE HEMOGLOBI 87592 COMBINED COMBINED N 4 PHYSICIAN PHYSICIAN GLYCOSYLA S LA S LA VICTORINA A1C COMPREHEN 12714 COMBINED COMBINED SIVE 4 PHYSICIAN PHYSICIAN METABOLIC S LA S LA PANEL OPHTH 60546 HÉCTOR ANAYA MEDICAL 4 GRE GRE XM&EVAL COMPRE NEW PT 1/> VST ALBUMIN 94190 [facility] URINE 4 DAHLIA DAHLIA MICROALBU MIN SEMIQUANT ITATIVE RADEX 01560 JIMMY JIMMY SPINE 4 ALEJANDRO ALEJANDRO THORACIC 3 VIEWS RADEX 65028 JIMMY JIMMY SHOULDER 4 ALEJANDRO ALEJANDRO COMPLETE MINIMUM 2 VIEWS RADIOLOGI 51533 JIMMY JIMMY C EXAM 4 ALEJANDRO ALEJANDRO CHEST 2 VIEWS FRONTAL&L ATERAL RADEX 09987 JIMMY JIMMY SPINE 4 ALEJANDRO ALEJANDRO CERVICAL [address] [place] [address] [place] [address] LARRY JUAREZ ABDOMEN & 4 [facility] PELVIS INC INC W/CONTRAS T MATERIAL LOCM Q9967 LARRY JUAREZ [phone] 4 [facility] MG/ML INC INC IODINE CONCENTRA TION PER ML URNLS DIP 42577 LARRY JUAREZ 4 [facility] STICK/TAB INC INC [place] [address] LARRY JUAREZ LIPASE 4 [facility] [place] [address] JIMMY JIMMY ABDOMEN & 4 ALEJANDRO ALEJANDRO PELVIS W/O CONTRAST MATERIAL COMPREHEN 94139 LARRY JUAREZ SIVE 4 [facility] METABOLIC INC INC PANEL 3D 25910 LARRY JUAREZ RENDERING 4 [facility] INC INC W/INTERP& POSTPROC DIFF WORK STATION BLOOD 25700 LARRY LEWISON COUNT 4 [facility] COMPLETE INC INC AUTO&[place] [address] LARRY JUAREZ INFUSION 4 [facility] THERAPY/P INC INC ROPHYLAXI S /DX 1ST TO 1 HR Encounters Encounter Start End Date Code Location Performer Type Date OFFICE 87170 [facility] SEN OUTPATIEN 7 7 RETINA T VISIT CONSULTAN 15 TS MINUTES OFFICE 25855 ALLERGY KNOTT OUTPATIEN 7 7 PARTNERS T VISIT OF [place] 25 CO [facility] L[facility] - 7 7 [facility] OUTPATIEN INC HOSPITAL LARRY - 7 7 [facility] OUTPATIEN INC T OFFICE 56855 ALLERGY KNOTT OUTPATIEN 7 7 PARTNERS T NEW 45 OF DUARTE MINUTES CO [facility] LARRY - 7 7 [facility] OUTPATIEN INC HOSPITAL [facility] - 7 7 [facility] OUTPATIEN INC T OFFICE 61209 [facility] OUT[facility] 7 7 [facility] T VISIT INTERNAL 15 MED MINUTES [facility] - 7 7 [facility] OUTPATIEN INC T OFFICE 50357 [facility] OUTPATIEN 7 7 [facility] T VISIT INTERNAL 25 MED MINUTES HOSPITAL [facility] - 7 7 [facility] OUTPATIEN INC T OFFICE 81909 [facility] OUTPATIEN 6 6 PHYSICIAN [facility] T VISIT S GROUP 10 MINUTES HOSPITAL LARRY - 6 6 [facility] INPATIENT INC EMERGENCY 62847 THOMAS ROSA DEPT 6 6 PHYSICIAN VISIT S, PLL[facility] HIGH SEVERITY& THREAT FUNCJ OFFICE 51605 [facility] OUTPATI[facility] 6 6 [facility] CONSULTAN MINUTES TS OFFICE 17720 [facility] OUTPATIEN 6 6 HARTMAN DAHLIA T VISIT INTERNAL 15 MED MINUTES HOSPITAL LARRY - OTHER 6 6 [facility] LARRY - 6 6 [facility] OUTPATIEN [facility] - 6 6 [facility] OUTPATIEN INC T EMERGENCY 61152 LARRY 6 6 [facility] DEPARTMEN INC T VISIT HIGH/URGE NT SEVERITY OFFICE 50344 [facility] OUTPATIEN 5 5 HARTMAN DAHLIA T VISIT INTERNAL 25 MED MINUTES HOSPITAL [facility] - 5 5 [facility] OUTPATIEN INC T EMERGENCY 32346 THOMAS DAMON DEPT 5 5 PHYSICIAN NINO VISIT S[facility] PLL[facility] HIGH SEVERITY& THREAT FUNCJ EMERGENCY 04042 [facility]ARRY 5 5 [facility] DEPARTMEN INC T VISIT MODERATE SEVERITY OFFICE 54015 [facility] OUTPATIEN 5 5 [facility] DAHLIA T VISIT INTERNAL 25 MED MINUTES HOSPITAL [facility] - 5 5 [facility] OUTPATIEN INC [facility]PITAL [facility] - 5 5 [facility] OUTPATIEN INC T OFFICE 99899 HÉCTOR ANAYA OUTPATIEN 5 5 [facility] T VISIT 25 MINUTES HOSPITAL LARRY - OTHER 5 5 [facility] INC OFFICE 46507 LARRY GUIDRY OUTPATIEN [address] H[facility]PITAL LARR[facility] - 5 5 [facility]PATIEN [facility] - 5 5 [facility] OUTPATIEN INC EMERGENCY 26426 [facility] DAMON [address] [facility] VIS[facility] P LOW/MODER SEVERITY OFFICE 41297 [facility] NELSON MALAGONEN [address] [facility] T VISIT S GROUP 15 MINUTES HOSPITAL LARRY - [address] [facility] T OFFICE 02757 [facility] OUTPATIEN 4 4 [facility] T VISIT INTERNAL 25 MED MINUTES OFFICE 33147 [facility] OUTPATIEN 4 4 [facility] T VISIT INTERNAL 15 MED MINUTES EMERGENCY 00174 NELSON DAMON 4 4 [facility] T VISIT HIGH/URGE NT SEVERITY OFFICE 66098 [facility] OUTPATIEN 4 4 [facility] T VISIT INTERNAL 15 MED MINUTES OFFICE 29332 CHAVEZ ADOLFO CHAVEZ ADOLFO OUTPATIEN 4 4 T VISIT 25 MINUTES HOSPITAL [facility] - 4 4 [facility] OUTPATIEN INC [facility]PITAL [facility] - 4 4 [facility] OUTPATIEN INC T OFFICE 19213 CHAVEZ ADOLFO CHAVEZ ADOLFO OUTPATIEN 4 4 T [facility] 45 [facility] LARRY - 4 4 [facility] OUTPATIEN INC T OFFICE 73509 BESS[facility] BESSON OUTPATIEN 4 4 DAHLIA DAHLIA T VISIT 15 MINUTES OFFICE 10988 [facility] OUTPATIEN 4 4 DAHLIA DAHLIA T VISIT 25 MINUTES HOSPITAL [facility] - 4 4 [facility] OUTPATIEN INC T EMERGENCY 28652 NELSON DAMON DEPT 4 4 NINO NINO VISIT HIGH SEVERITY& THREAT FUN EMERGENCY 48733 LARRY 4 4 [facility] DEPARTMEN INC T VISIT LOW/MODER SEVERITY Emergency JESSICA Cross MD (ER) 4 11:33 4 16:29 [facility] EMERGENCY 86738 DEV ANGEL DEPT 4 4 VISIT HIGH SEVERITY& THREAT [facility] LARRY - 4 4 [facility] OUTPATIEN INC T EMERGENCY 82027 LARRY 4 4 [facility] DEPARTMEN INC T VISIT HIGH/URGE NT SEVERITY Emergency JESSICA Partida (ER) 3 14:10 3 14:41 [facility] Red E. Emergency JESSICA ZACARIAS (ER) 3 12:02 3 14:42 [facility] MOHAMED Emergency JESSICA Cross MD (ER) 3 17:51 3 19:25 [facility] Inpatient JAKOB Anderson (IN) 3 02:15 3 11:35 [facility]
--- OUTSIDE RECORDS SUMMARY | 2016-11-27 04:52 | External Medical Summary Rpt | CCD ---
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 IC PX 1/> 5 [facility] EACH 15 PSC MIN EXERCISES E-STIM G0283 PROFESSIO CROSSFIEL 1/> AREAS 5 [facility] WND CARE PSC PART TX PLAN E-STIM G0283 PROFESSIO CROSSFIEL 1/> AREAS 5 [facility] WND CARE PSC PART TX PLAN THERAPEUT 85135 PROFESSIO CROSSFIEL IC PX 1/> 5 [facility] EACH 15 PSC MIN EXERCISES THERAPEUT 32893 PROFESSIO CROSSFIEL IC PX 1/> 5 [facility] EACH 15 PSC MIN EXERCISES E-STIM G0283 PROFESSIO CROSSFIEL 1/> AREAS 5 [facility] WND CARE PSC PART TX PLAN PHYSICAL 37391 PROFESSIO CROSSFIEL THERAPY 5 [facility] EVALUAT[facility] N PSC THERAPEUT 79546 PROFESSIO CROSSFIEL IC PX 1/> 5 [facility] EACH 15 PSC MIN EXERCISES BLD GLU A4253 [facility] TEST/REAG 5 PHARMACY PHARMACY T STRIPS #591 #591 HOME BLD GLU MON-50 COLLECTIO 91952 LARRY JUAREZ N VENOUS 5 [facility] [place] [address] LARRY JUAREZ FREE 5 [facility] [place] [address] ALRRY JUAREZ THYROID 5 [facility] STIMULATI INC INC NG HORMONE TSH ANTIBODY 79167 LARRY JUAREZ HELMINTH 5 [facility] NOT INC INC ELSEWHERE SPECIFIED BLD GLU A4253 [facility] TEST/REAG 5 PHARMACY PHARMACY T STRIPS #591 #591 HOME BLD GLU MON-50 MEDICAL 04772 LARRY JUAREZ NUTRITION 5 [facility] INC INC ASSMT&IVN TJ INDIV EACH 15 CA COMPUTER- 68037 LARRY JAUREZ AIDED 4 [facility] DETECTION INC INC SCREENING MAMMOGRAP HY SCREENING G0202 [facility] JUAREZ 4 [facility] MAMMOGRAP INC INC HY KENY INCL CAD WHEN PERFORMD HEMOGLOBI 75264 COMBINED COMBINED N 4 PHYSICIAN PHYSICIAN GLYCOSYLA S LA S LA VICTORINA A1C LIPID 07917 COMBINED COMBINED PANEL 4 PHYSICIAN PHYSICIAN S LA S LA ALBUMIN 33161 [facility] URINE 4 [facility] DAHLIA MICROALBU INTERNAL MIN MED SEMIQUANT ITATIVE COMPREHEN 11043 COMBINED COMBINED SIVE 4 PHYSICIAN PHYSICIAN METABOLIC S LA S LA PANEL RADIOLOGI 72073 JABARI Hooper C 4 EXAMINATI ON PELVIS 1/2 VIEWS CRTCHS E0114 BREG INC. BREG INC. UNDARM 4 OTH THAN WOOD PAIR PAD TIP&HNDGR IP RADEX HIP 10640 JABARI BARBOZA D 4 UNILATERA L COMPLETE MINIMUM 2 VIEWS EGD 96292 LARRY JUAREZ TRANSORAL 4 [facility] BIOPSY INC INC SINGLE/MU LTIPLE GLUC BLD 46275 LARRY JUAREZ GLUC MNTR 4 [facility] DEV INC INC CLEARED FDA SPEC HOME USE [place] 72246 CHAVEZ ADOLFO CHAVEZ ADOLFO PY 4 W/BIOPSY SINGLE/MU LTIPLE SPECIAL 36682 JEROME JEROME STAIN 4 GALA GALA GROUP 1 MICROORGA NISMS I&R ANES 45579 [facility] LOWER 4 ANESTH XUAN INTESTINE OF THE [place] [address] JEROME JEROME SURG 4 GALA GALA PATHOLOGY GROSS&NINO ROSCOPIC EXAM SPCL STN 04843 JEROME JEROME 2 I&R 4 GALA GALA EXCPT MICROORG/ ENZYME/IM CYT OVA&VEDA 85086 LARRY JUAREZ ITES 4 [facility] DIRECT INC INC SMEARS CONCENTRA TION & [place] [address] LARRY JUAREZ GIARDIA 4 [facility] INC INC COMPREHEN 29762 LARRY JUAREZ SIVE 4 [facility] METABOLIC INC INC PANEL C-REACTIV 79241 LARRY JUAREZ E PROTEIN 4 [facility] INC INC BLOOD 23912 LARRY JUAREZ COUNT 4 [facility] COMPLETE INC INC AUTO&AUTO DIFRNTL WBC BLOOD 85458 COMBINED COMBINED COUNT 4 PHYSICIAN PHYSICIAN COMPLETE S LA S LA AUTO&AUTO DIFRNTL WBC HEMOGLOBI 38178 COMBINED COMBINED N 4 PHYSICIAN PHYSICIAN GLYCOSYLA S LA S LA VICTORINA A1C OPHTH 55837 HÉCTOR ANAYA MEDICAL 4 GRE GRE XM&EVAL COMPRE NEW PT 1/> VST DETERMINA 62393 HÉCTOR ANAYA TION 4 GRE GRE REFRACTIV E STATE COMPREHEN 38779 COMBINED COMBINED SIVE 4 PHYSICIAN PHYSICIAN METABOLIC S LA S LA PANEL ALBUMIN 43637 BESSON BESSON URINE 4 DAHLIA DAHLIA MICROALBU MIN SEMIQUANT ITATIVE RADEX 76918 LARRY JUAREZ SHOULDER 4 [facility] COMPLETE INC INC MINIMUM 2 VIEWS RADEX 89811 LARRY JUAREZ SPINE 4 [facility] CERVICAL INC INC 4 OR 5 VIEWS RADIOLOGI 88380 LARRY JUAREZ C EXAM 4 [facility] CHEST 2 INC INC VIEWS FRONTAL&L ATERAL RADEX 57692 LARRY JUAREZ SPINE 4 [facility] THORACIC INC INC 3 VIEWS 3D 49791 LARRY JUAREZ RENDERING 4 [facility] INC INC W/INTERP& POSTPROC DIFF WORK STATION COMPREHEN 54712 LARRY JUAREZ SIVE 4 [facility] METABOLIC INC INC PANEL LOCM Q9967 LARRY JUAREZ [phone] 4 [facility] MG/ML INC [place] [address] LARRY JUAREZ ABDOMEN & 4 [facility] [place] [address] LARRY JUAREZ INFUSION 4 [facility] THERAPY/P INC INC ROPHYLAXI S /DX [address] [place] [address] [place] [address] JIMMY JIMMY ABDOMEN & 4 ALEJANDRO ALEJANDRO PELVIS W/O CONTRAST MATERIAL BLOOD 33954 LARRY JUAREZ COUNT 4 [facility] COMPLETE INC INC AUTO&[place] [address] LARRY JUAREZ LIPASE 4 [facility] INC INC URNLS DIP 25795 LARRY JUAREZ 4 [facility] STICK/TAB INC INC LET REAGENT AUTO MICROSCOP Y Encounters Encounter Start End Date Code Location Performer Type Date OFFICE 66027 [facility] SEN OUTPATIEN 7 7 RETINA T VISIT CONSULTAN 15 TS MINUTES OFFICE 25332 ALLERGY KNOTT OUTPATIEN 7 7 PARTNERS T VISIT OF DUARTE 25 [facility] LARRY - 7 7 [facility] OUTPATIEN [facility] LARRY - 7 7 [facility] OUTPATIEN [facility] T OFFICE 10276 ALLERGY KNOTT OUTPATIEN 7 7 PARTNERS T NEW 45 OF DUARTE MINUTES [facility] LARRY - 7 7 [facility] OUTPATIEN [facility] LARRY - 7 7 [facility]IEN INC T OFFICE 81480 [facility] OUTPATIEN 7 7 [facility] T VISIT INTERNAL 15 MED MINUTES [facility] - 7 7 [facility] T OFFICE 23381 [facility] OUTPATIEN 7 7 [facility] T VISIT INTERNAL 25 MED MINUTES [facility] - 7 7 [facility] OUTPATIEN [facility] T OFFICE 59783 [facility] LORI ELIZALDE OUTPATIEN 6 6 PHYSICIAN WILY T VISIT S GROUP 10 MINUTES HOSPITAL [facility] - 6 6 [facility] INPATIENT INC EMERGENCY 67807 THOMAS ROSA DEPT 6 6 PHYSICIAN VISIT S, PLLC HIGH SEVERITY& THREAT FUNCJ OFFICE 05862 [facility]UEGRASS SEN CHAGO OUTPATIEN 6 6 RETINA T NEW 45 CONSULTAN MINUTES TS OFFICE 05075 [facility] OUTPATIEN 6 6 [facility] DAHLIA T VISIT INTERNAL 15 MED MINUTES HOSPITAL [facility] - OTHER 6 6 [facility]PITAL L[facility] - 6 6 [facility] OUTPATIEN INC T EMERGENCY 70751 [facility] 6 6 [facility] HIGH/URGE NT SEVERITY [facility] - 6 6 [facility] OUTPATIEN INC T OFFICE 72124 [facility] [facility] OUTPATIEN 5 5 [facility] DAHLIA T VISIT INTERNAL 25 MED MINUTES EMERGENCY 12320 [facility] 5 5 [facility] T VISIT MODERATE SEVERITY EMERGENCY 56604 THOMAS DAMON DEPT 5 5 PHYSICIAN NINO VISIT S, [facility] HIGH SEVERITY& THREAT [facility] L[facility] - 5 5 [facility] OUTPATIEN INC T OFFICE 42821 [place] [facility] OUTPATIEN 5 5 [facility] DAHLIA T VISIT INTERNAL 25 MED MINUTES [facility]OSPITAL [facility] - 5 5 [facility] OUTPAT[facility]EN [facility] - 5 5 [facility] OUTPATIEN [facility] T OFFICE 96673 HÉCTOR ANAYA OUTPATIEN 5 5 GRE GRE T VISIT 25 MINUTES HOSPITAL [facility] - OTHER 5 5 [facility] INC OFFICE 65233 LARRY GUIDRY OUTPATIEN [address] [facility] L[facility] - 5 5 [facility]EN [facility] L[facility] - 5 5 [facility] OUTPATIEN INC T EMERGENCY 74704 [facility] DAMON 4 4 [facility] T VISIT P LOW/MODER SEVERITY OFFICE 02808 [facility] NELSON MAR 4 4 PHYSICIAN NINO T VISIT S GROUP 15 MINUTES HOSPITAL [facility] - 4 4 [facility] OUTPATIEN INC T OFFICE 52216 [facility] [facility] OUTPATIEN 4 4 [facility] DAHLIA T VISIT INTERNAL 25 MED MINUTES OFFICE 87611 [facility] [facility] OUTPATIEN 4 4 [place] DAHLIA T VISIT INTERNAL 15 MED MINUTES EMERGENCY 07807 NELSON DAMON 4 4 NINO NINO DEPARTMEN T VISIT HIGH/URGE NT SEVERITY OFFICE 84822 [facility] OUTPATIEN 4 4 [place] DAHLIA T VISIT INTERNAL 15 MED MINUTES OFFICE 27462 CHAVEZ ADOLFO CHAVEZ ADOLFO OUTPATIEN 4 4 T VISIT 25 MINUTES [facility]OSPITAL [facility] - 4 4 [facility] OUTPATIEN [facility] T [facility] - 4 4 [facility] T [facility]OSPITAL L[facility]Y - 4 4 [facility] OUTPATIEN [facility] OFFICE 69037 CHAVEZ ADOLFO CHAVEZ ADOLFO OUTPATIEN 4 4 T NEW 45 MINUTES OFFICE 43248 BESSON BESSON OUTPATIEN 4 4 [facility] DAHLIA T VISIT 15 MINUTES OFFICE 63746 BESSON BESSON OUTPATIEN 4 4 [facility] DAHLIA T VISIT 25 MINUTES EMERGENCY 12633 L[facility] 4 4 [facility] DEPARTMEN [facility] T VISIT LOW/MODER SEVERITY [facility]OSPITAL [facility] - 4 4 [facility] OUTPATIEN INC T EMERGENCY 38097 NELSON DAMON DEPT 4 4 NINO NINO VISIT HIGH SEVERITY& THREAT FUNCJ EMERGENCY 10886 [facility] 4 4 [facility] DEPARTMEN INC T VISIT HIGH/URGE NT SEVERITY [facility]OSPITAL [facility] - 4 4 [facility] OUTPATIEN INC T EMERGENCY 59068 DEV ANGEL DEPT 4 4 VISIT HIGH SEVERITY& THREAT FUNCJ
--- OUTSIDE RECORDS SUMMARY | 2016-11-27 04:52 | External Medical Summary Rpt | CCD ---
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 45417 COMBINED COMBINED SIVE 4 PHYSICIAN PHYSICIAN METABOLIC S LA S LA PANEL RADIOLOGI 98571 JABARI Hooper C 4 EXAMINATI ON PELVIS 1/2 VIEWS CRTCHS E0114 BREG INC. BREG INC. UNDARM 4 OTH THAN WOOD PAIR PAD TIP&HNDGR IP RADEX HIP 02005 JABARI BARBOZA D 4 UNILATERA L COMPLETE MINIMUM 2 VIEWS EGD 09243 [facility] TRANSORAL 4 [facility] BIOPSY INC INC SINGLE/MU LTIPLE GLUC BLD 48865 L[facility] GLUC MNTR 4 [facility] DEV INC INC CLEARED FDA SPEC HOME USE COLONOSCO 80392 CHAVEZ ADOLFO CHAVEZ ADOLFO PY 4 W/BIOPSY SINGLE/MU LTIPLE SPECIAL 47484 JEROME JEROME STAIN 4 GALA GALA GROUP 1 MICROORGA NISMS I&R ANES 26952 [facility] LOWER 4 ANESTH XUAN INTESTINE OF THE [place] [address] JEROME JEROME SURG 4 GALA GALA PATHOLOGY GROSS&NINO ROSCOPIC EXAM SPCL STN 79354 JEROME JEROME 2 I&R 4 GALA GALA EXCPT MICROORG/ ENZYME/IM CYT OVA&VEDA 68312 [facility] ITES 4 [facility] DIRECT INC INC SMEARS CONC[place]TRA [place] & [place] [address] LARRY JUAREZ GIARDIA 4 [facility] INC INC COMPREHEN 56958 L[facility] SIVE 4 [facility] METABOLIC INC INC PANEL C-REACTIV 09114 [facility] E PROTEIN 4 [facility] INC INC BLOOD 12827 [facility] JU[facility] COUNT 4 [facility] COMPLETE INC INC AUTO&AUTO DIFRNTL WBC BLOOD 42471 COMBINED COMBINED COUNT 4 PHYSICIAN PHYSICIAN COMPLETE S LA S LA AUTO&AUTO DIFRNTL WBC HEMOGLOBI 92069 COMBINED COMBINED N 4 PHYSICIAN PHYSICIAN GLYCOSYLA S LA S LA VICTORINA A1C OPHTH 06927 HÉCTOR ANAYA MEDICAL 4 GRE GRE XM&EVAL COMPRE NEW PT 1/> VST DETERMINA 26105 HÉCTOR ANAYA TION 4 GRE GRE REFRACTIV E STATE COMPREHEN 79719 COMBINED COMBINED SIVE 4 PHYSICIAN PHYSICIAN METABOLIC S LA S LA PANEL ALBUMIN 46867 BESSON BESSON URINE 4 DAHLIA DAHLIA MICROALBU MIN SEMIQUANT ITATIVE RADEX 88231 LARRY JUAREZ SHOULDER 4 [facility] COMPLETE INC INC MINIMUM 2 VIEWS RADEX 27429 L[facility] JUAREZ SPINE 4 [facility] CERVICAL INC INC 4 OR 5 VIEWS RADIOLOGI 51772 L[facility] JUAREZ C EXAM 4 [facility] CHEST 2 INC INC VIEWS FRONTAL&L ATERAL RADEX 79563 LARRY JUAREZ SPINE 4 [facility] THORACIC INC INC 3 VIEWS 3D 83359 LARRY JUAREZ RENDERING 4 [facility] INC INC W/INTERP& POSTPROC DIFF WORK STATION COMPREHEN 92741 LARRY JUAREZ SIVE 4 [facility] METABOLIC INC INC PANEL LOCM Q9967 LARRY JUAREZ [phone] 4 [facility] MG/ML INC [place] [address] L[facility] JU[facility] ABDOMEN & 4 [facility] PELVIS INC INC [place] [address] LARRY JUAREZ INFUSION 4 [facility] THERAPY/P INC INC ROPHYLAXI S /DX [address] [place] [address] [place] [address] JIMMY JIMMY ABDOMEN & 4 ALEJANDRO ALEJANDRO PELVIS W/O CONTRAST MATERIAL BLOOD 23066 [facility] JUARE[facility] COUNT 4 [facility] COMPLETE INC INC AUTO&[place] [address] LARRY JUAREZ LIPASE 4 [facility] INC INC URNLS DIP 89027 L[facility] JUAREZ 4 [facility] STICK/TAB INC INC LET REAGENT AUTO MICROSCOP Y Encounters Encounter Start End Date Code Location Performer Type Date OFFICE 50856 [facility] SEN OUTPATIEN 7 7 RETINA T VISIT CONSULTAN 15 TS MINUTES OFFICE 00173 ALLERGY KNOTT OUTPATIEN 7 7 PARTNERS T VISIT OF [facility] L[facility] - 7 7 [facility] LARRY - 7 7 [facility] T OFFICE 74547 ALLERGY KNOTT OUTPATIEN 7 7 PARTNERS T NEW 45 OF DUARTE MINUTES [facility] LARRY - 7 7 [facility] LARRY - 7 7 [facility]IEN INC T OFFICE 77575 [facility] OUTPATIEN 7 7 [facility] T VISIT INTERNAL 15 MED MINUTES [facility] - 7 7 [facility] T OFFICE 14505 [facility] OUTPATIEN 7 7 [facility] T VISIT INTERNAL 25 MED MINUTES [facility] - 7 7 [facility] OUT[facility]EN [facility] T OFFICE 70727 [facility] LORI ELIZALDE OUTPATIEN 6 6 PHYSICIAN WILY T VISIT S GROUP 10 MINUTES HOSPITAL [facility]Y - 6 6 [facility] INPATIENT INC EMERGENCY 07338 THOMAS ROSA DEPT 6 6 PHYSICIAN VISIT S, PLLC HIGH SEVERITY& THREAT FUNCJ OFFICE 85844 BLUEGRASS SEN CHAGO OUTPATIEN 6 6 RETINA T NEW 45 CONSULTAN MINUTES TS OFFICE 74909 [facility] OUTPATIEN 6 6 [facility] DAHLIA T VISIT INTERNAL 15 MED MINUTES HOSPITAL L[facility] - OTHER 6 6 [facility] HOSPITAL LARRY - 6 6 [facility] OUTPATIEN INC T EMERGENCY 14452 [facility] 6 6 [facility] HIGH/URGE NT SEVERITY [facility] L[facility] - 6 6 [facility] OUTPATIEN INC T OFFICE 54192 [facility] OUTPATIEN 5 5 VALLEY DAHLIA T VISIT INTERNAL 25 MED MINUTES EMERGENCY 71013 [facility]ARR[facility] 5 5 [facility] T VISIT MODERATE SEVERITY EMERGENCY 33572 THOMAS DAMON DEPT 5 5 PHYSICIAN NINO VISIT S, [facility] HIGH SEVERITY& THREAT [facility] LARRY - 5 5 [facility] OUTPATIEN INC T OFFICE 14335 [facility] OUTPATIEN 5 5 [facility]LEY DAHLIA T VISIT INTERNAL 25 MED MINUTES HOSPITAL LARR[facility] - 5 5 [facility]PATIEN [facility] LARR[facility] - 5 5 [facility] OUTPATIEN [facility] T OFFICE 99604 HÉCTOR ANAYA OUTPATIEN 5 5 GRE GRE T VISIT 25 MINUTES HOSPITAL LARRY - OTHER 5 5 [facility] INC OFFICE 66305 LARRY GUIDRY OUTPATIEN [address] [facility]PITAL LARRY - 5 5 [facility] OUTPATIEN [facility] LARR[facility] - 5 5 [facility] OUTPATIEN INC T EMERGENCY 96639 LARRY DAMON 4 4 [facility] T VISIT P LOW/MODER SEVERITY OFFICE 84325 [facility] NELSON MAR 4 4 PHYSICIAN NINO T VISIT S GROUP 15 MINUTES HOSPITAL LARRY - 4 4 [facility] OUTPATIEN INC T OFFICE 67551 [facility] OUTPATIEN 4 4 [facility] DAHLIA T VISIT INTERNAL 25 MED MINUTES OFFICE 89067 [facility] OUTPATIEN 4 4 [facility] DAHLIA T VISIT INTERNAL 15 MED MINUTES EMERGENCY 25170 NELSON DAMON 4 4 NINO NINO DEPARTMEN T VISIT HIGH/URGE NT SEVERITY OFFICE 47895 [facility] OUTPATIEN 4 4 [facility] DAHLIA T VISIT INTERNAL 15 MED MINUTES OFFICE 59896 CHAVEZ ADOLFO CHAVEZ ADOLFO OUTPATIEN 4 4 T VISIT 25 MINUTES HOSPITAL LARRY - 4 4 [facility] OUT[facility]IEN [facility] T HOSPITAL LARRY - 4 4 [facility] T HOSPITAL LARRY - 4 4 [facility] OFFICE 94157 CHAVEZ ADOLFO CHAVEZ ADOLFO OUTPATIEN 4 4 T NEW 45 MINUTES OFFICE 01191 [facility] BESSON OUTPATIEN 4 4 [facility] DAHLIA T VISIT 15 MINUTES OFFICE 97050 B[facility] BESSON OUTPATIEN 4 4 [facility] DAHLIA T VISIT 25 MINUTES EMERGENCY 44569 LARRY 4 4 [facility] DEPARTMEN [facility] T VISIT LOW/MODER SEVERITY [facility]OSPITAL LARRY - 4 4 [facility] OUTPATIEN INC T EMERGENCY 01316 NELSON DAMON DEPT 4 4 NINO NINO VISIT HIGH SEVERITY& THREAT FUNCJ EMERGENCY 20402 [facility] 4 4 [facility] DEPARTMEN INC T VISIT HIGH/URGE NT SEVERITY [facility]OSPITAL L[facility] - 4 4 [facility] OUTPATIEN INC T EMERGENCY 37889 DEV ANGEL DEPT 4 4 VISIT HIGH SEVERITY& THREAT FUNCJ
--- OUTSIDE RECORDS SUMMARY | 2016-11-27 04:53 | External Medical Summary Rpt | CCD ---
Author Author , ALFREDO MILLER Address Unknown Phone [email or web address] Immunization Name Date Rout CVX Reac Dose Comm Prov Is Faci e tion ent ider Refu lity Give sed n Infl 09-0 Intr 140 0.5 Hist [facility] No [facility] uenz 6-20 amus mL oric ART5 ART5 a, 17 cula al 91 91 P-Fr r Info ee rmat ion - Sour ce Unsp ecif ied PPV2 09-0 Intr 33 0.5 Hist WALM No WALM 3 6-20 amus mL oric ART5 ART5 17 cula al 91 91 r Info rmat ion - Sour ce Unsp ecif ied
--- OUTSIDE RECORDS SUMMARY | 2016-11-27 04:53 | External Medical Summary Rpt ---
Author Author MARIAAGUIDO Boyd, PAUL [employer] [facility] [place] Organization [employer] Address Unknown Phone Unavailable Results Platelets [#/volume] in Blood Observa Value Referen Units Interpr Notes Date tion ce etation Range Platelets 142 - 424 K/mm3 Normal No Oct 15 informati 2016 [#/volume on in 12:32 PM ] in source Blood data MISCELLANEOUS TEST Observa Value Referen Units Interpr Notes Date tion ce etation Range SEE SEPARATE REPORT FOR NORMAL VALUES AND/OR INTERPRETATION SEE SEPARATE REPORT FOR NORMAL VALUES AND/OR INTERPRETATION Carcinoembryonic Ag [Mass/volume] in Serum or Plasma Observa Value Referen Units Interpr Notes Date tion ce etation Range Carcinoem 0.0 - 4.7 ng/mL No Honorio Aug 25 bryonic informati ECLIA 2016 8:20 Ag on in methodolo AM [Mass/vol source gy ume] in data Nonsmoker Serum or s Plasma <3.9Smoke rs <5.6Perfo rmed at: - [facility] [address] [id number] [facility] Manager: Murtaza Villarreal PhD, Phone: [phone] Urea nitrogen [Mass/volume] in Serum or Plasma Observa Value Referen Units Interpr Notes Date tion ce etation Range Urea 7 - 18 mg/dL Normal No Aug 25 nitrogen informati 2016 8:20 [Mass/vol on in AM ume] in source Serum or data Plasma CREATININE Observa Value Referen Units Interpr Notes Date tion ce etation Range Creatinin 0.55 - mg/dL Normal No Aug 25 e 1.02 informati 2016 8:20 [Mass/vol on in AM ume] in source Serum or data Plasma Estimated 59- ML/MIN No REFERENCE Aug 25 informati RANGE: 2017 8:20 glomerula on in >60 AM r source ML/MIN/1. filtratio data 73 SQUARE n rate METERSIf (GF this patient is -A merican, then multiply theresult by 1.210. Comprehensive metabolic 2000 panel in Serum or Plasma Observa Value Referen Units Interpr Notes Date tion ce etation Range Albumin/G 1.1 - 1.8 No Low No Carlos 8 lobulin informati informati 2017 8:01 [Mass on in on in AM ratio] in source source Serum or data data Plasma Albumin 3.4 - 5.0 gm/dL Low No Carlos 8 [Mass/vol informati 2017 8:01 ume] in on in AM Serum or source Plasma data Alkaline 46 - 116 U/L Normal No Carlos 8 phosphata informati 2017 8:01 se on in AM [Enzymati source c data activity/ volume] in Serum or Plasma Bilirubin 0.2 - 1.0 mg/dL Normal No Carlos 8 .total informati 2017 8:01 [Mass/vol on in AM ume] in source Serum or data Plasma Urea 7 - 18 mg/dL Normal No Carlos 8 nitrogen informati 2017 8:01 [Mass/vol on in AM ume] in source Serum or data Plasma Calcium 8.5 - mg/dL Normal No Carlos 8 [Mass/vol 10.1 informati 2017 8:01 ume] in on in AM Serum or source Plasma data Chloride 98 - 107 mmoL/L Normal No Carlos 8 [Moles/vo informati 2016 8:01 lume] in on in AM Serum or source Plasma data Carbon 21.0 - mmoL/L Normal No Carlos 8 dioxide, 32.0 informati 2017 8:01 total on in AM [Moles/vo source lume] in data Serum or Plasma Creatinin 0.55 - mg/dL Normal No Jul 8 e 1.02 informati 2017 8:01 [Mass/vol on in AM ume] in source Serum or data Plasma Estimated 59- ML/MIN No REFERENCE Carlos 8 informati RANGE: 2017 8:01 glomerula on in >60 AM r source ML/MIN/1. filtratio data 73 SQUARE n rate METERSIf (GF this patient is -A merican, then multiply theresult by 1.210. Globulin 1.3 - 3.2 gm/dL High No Carlos 8 [Mass/vol informati 2017 8:01 ume] in on in AM Serum source data Glucose 74 - 106 mg/dL High No Jul 8 [Mass/vol informati 2016 8:01 ume] in on in AM Serum or source Plasma data Potassium 3.5 - 5.1 mmoL/L Normal No Jul 8 informati 2016 8:01 [Moles/vo on in AM lume] in source Serum or data Plasma Sodium 136 - 145 mmoL/L Normal No Jul 8 [Moles/vo informati 2016 8:01 lume] in on in AM Serum or source Plasma data Aspartate 15 - 37 U/L Low No Jul 23 informati 2016 8:01 aminotran on in AM sferase source [Enzymati data c activity/ volume] in Serum or Plasma Alanine 12 - 78 U/L Normal No Jul 23 aminotran informati 2016 8:01 sferase on in AM [Enzymati source c data activity/ volume] in Serum or Plasma Protein 6.4 - 8.2 gm/dL Low No Jul 23 [Mass/vol informati 2016 8:01 ume] in on in AM Serum or source Plasma data Lipid 1996 panel in Serum or Plasma Observa Value Referen Units Interpr Notes Date tion ce etation Range Cholester < 200 mg/dL No No Jul 23 ol informati informati 2016 8:01 [Moles/vo on in on in AM lume] in source source Unspecifi data data ed specimen Cholester 40 - 60 MG/DL Normal No Jul 23 ol in HDL informati 2016 8:01 on in AM [Mass/vol source ume] in data Serum or Plasma Cholester 0 - 130 mg/dL Normal No Jul 23 ol in LDL informati 2016 8:01 on in AM [Mass/vol source ume] in data Serum or Plasma by calculati on Triglycer 30 - 200 mg/dL Normal No Jul 23 johnny informati 2017 8:01 [Moles/vo on in AM lume] in source Serum or data Plasma Cholester 0 - 40 No Normal No Jul 8 ol in informati informati 2016 8:01 VLDL on in on in AM [Mass/vol source source ume] in data data Serum or Plasma Hemoglobin A1c in Blood Observa Value Referen Units Interpr Notes Date tion ce etation Range Hemoglo 9.5 0.0 - % High < 6% Jul 23 bin A1c 7.0 NON-THOMPSON 2017 in BETIC 8:01 AM Blood LEVEL< 7% CONTROL LED DIABETI C LEVEL> 8% POORLY CONTROL LED DIABETI C LEVEL
--- OUTSIDE RECORDS SUMMARY | 2016-11-27 04:53 | External Medical Summary Rpt | CCD ---
Author Author , ALFREDO MILLER Address Unknown Phone [email or web address] Immunization Name Date Rout CVX Reac Dose [...]
--- OUTSIDE RECORDS SUMMARY | 2016-11-27 04:53 | External Medical Summary Rpt ---
Author Author MARIAAGUIDO Boyd, PAUL [employer] Organization [employer] Address Unknown Phone Unavailable [...] <3.9Smoke rs <5.6Perfo rmed at: - [facility] [address] [id number] Patient Service Coordinator: Murtaza Villarreal PhD, Phone: [phone] Urea nitrogen [Mass/volume] in Serum or [...]
== END 2016-11-20 14:20 | disposition home or self-care (01) ==
LOC: ER 12:31 → UTC 12:43 → ER 12:43 → UTC 14:20
DX: S63.502A Unspecified sprain of left wrist, initial encounter (principal); X50.0XXA Overexertion from strenuous movement or load, initial encounter; Y93.G1 Activity, food preparation and clean up; Y92.9 Unspecified place or not applicable; I10 Essential (primary) hypertension; E78.5 Hyperlipidemia, unspecified; J45.909 Unspecified asthma, uncomplicated; E11.9 Type 2 diabetes mellitus without complications; Z79.4 Long term (current) use of insulin; Z79.899 Other long term (current) drug therapy